=== PATIENT | female | born 1990 ===

== ENCOUNTER 2019-02-26 01:11 | Emergency (ER) ==
[2019-02-26] MEDS ORDERED: ONDANSETRON 4 MG TAB.RAPDIS PO ONE (01:24)
== END 2019-02-26 03:57 | disposition left against medical advice (07) ==
LOC: ER 01:11
DX: Z53.21 Procedure and treatment not carried out due to patient leaving prior to being seen by health care provider (principal); R10.9 Unspecified abdominal pain
CPT/HCPCS: S0119